=== PATIENT | female | born 1995 | race Caucasian/White ===

== ENCOUNTER 2016-10-22 17:32 | Emergency (ER) | payer BC ==
[2016-10-22 17:52] VITALS: BP 121/74
[2016-10-22] MEDS ORDERED: Tetan/Diph/Pertus SYR(Tdap)* 0.5 ML SYR(BOOSTRIX) use SYR IM ONE (18:42)
--- NOTE | 2016-10-22 19:04 | UC ---
Bite Injury/Animal HPI - HPI Summary HPI Summary: 21 yo female c/o R wrist cat bite occurred approx an hour prior to arrival. Cat his her own cat, she reports that cat's rabies immunization utd. Bite occurred as pt was trying to rescue the domi from being stuck. (She succeeded, but domi was scared and bit her in the process.) Afraid of infection and wants to be checked. - History of Current Complaint Chief Complaint: UCBiteInjury Stated Complaint: CAT BITE Time Seen by Provider: 10/22/16 18:37 Hx Obtained From: Patient Hx Last Menstrual Period: n/a pt has mirena ?: No - Allergies/Home Medications Allergies/Adverse Reactions: Allergies Allergy/AdvReac Type Severity Reaction Status Date / Time Penicillin V Allergy Intermediate Hives Verified 10/22/16 17:52 [From Penicil VK] PMH/Surg Hx/FS Hx/Imm Hx Previously Healthy: Yes Endocrine History Of: Denies: Diabetes, Thyroid Disease, Hyperthyroidism, Hypothyroidism, Dyslipidemia Cardiovascular History Of: Denies: Cardiac Disorders, Hypertension, Pacemaker/ICD, Myocardial Infarction , Congestive Heart Failure, Atrial Fibrillation, Deep Vein Thrombosis, Bleeding Disorders Respiratory History Of: Reports: Asthma Denies: COPD, Bronchitis, Pneumonia, Pulmonary Embolism GI/ History Of: Denies: Gastroesophageal Reflux, Ulcer, Gastrointestinal Bleed, Gall Bladder Disease, Kidney Stones, Diverticulitis, Renal Disease, Urosepsis Neurological History Of: Denies: TIA, CVA, Dementia, Seizures, Migraine Psychological History Of: Reports: Depression - She took medication six years ago. Denies: Anxiety, Bipolar Disorder, Schizophrenia, Post Traumatic Stress Disorder Cancer History Of: Denies: Lung Cancer, Colorectal Cancer, Breast Cancer, Prostate Cancer, Cervical Cancer Other History Of: Negative For: HIV, Hepatitis B, Hepatitis C, Anticoagulant Therapy - Surgical History Surgical History: Yes Surgery Procedure, Year, and Place: TONSILECTOMY AT AGE 9. [place] teeth - Family History Known Family History: Positive: Cardiac Disease, Hypertension - Social History Alcohol Use: None Substance Use Type: None Smoking Status (MU): Never Smoked Tobacco - Immunization History Most Recent Tetanus Shot: 2008 Vaccination Up to Date: Yes Review of Systems Constitutional: Negative Skin: Other - see hpi Eyes: Negative ENT: Negative Respiratory: Negative Cardiovascular: Negative Gastrointestinal: Negative Genitourinary: Negative Motor: Negative Neurovascular: Negative Musculoskeletal: Negative Neurological: Negative Psychological: Negative All Other Systems Reviewed And Are Negative: Yes Physical Exam Triage Information Reviewed: Yes Appearance: Well-Appearing, Well-Nourished Vital Signs: Initial Vital Signs Temp 99.7 F 10/22/16 17:45 Pulse 100 10/22/16 17:45 Resp 17 10/22/16 17:45 BP 121/74 10/22/16 17:45 Pulse Ox 98 10/22/16 17:45 Vital Signs Reviewed: Yes ENT Exam: Normal - grossly normal Neck exam: Normal - grossly normal Respiratory Exam: Normal - no tachypnea / no dypsnea Cardiovascular Exam: Normal Abdominal Exam: Normal - grossly normal. sitting up w/o difficulty. Musculoskeletal Exam: Normal - see skin for details Neurological Exam: Normal Psychological Exam: Normal Skin Exam: Other - normal color. R distal dorsal and volar wrist with several wounds c/w cat bites. No active bleeding. No repair indicated. They appear superficial - ie, not through the dermis, but still enough to result in trauma. Wounds punctate to approx 1cm in length. From R wrist and hand. Good cap refill. NVI distal. Good pulses. Bite Injury Course/Dx - Course Course Of Treatment: Pt confirms that domi's rabies vaccines are up to date. But last tet immun approx 10 yrs ago. As such Boostrix administered today. PCN - allergic. Rx Doxycycline. Rx mupirocin (thin layer). Rx Diflucan as needed vag yeast infection. Questions answered to the best of my ability. - Differential Dx/Diagnosis Provider Diagnoses: Cat bite R wrist Discharge - Discharge Plan Condition: Stable Disposition: HOME Prescriptions: DOXYcycline CAP(*) [DOXYcycline 100MG CAP(*)] 100 mg PO BID #14 cap Mupirocin 2% OINT* [Bactroban 2 % Oint*] 1 applic TOPICAL BID #1 tube Patient Education Materials: Animal Bite (ED), Diphtheria/Acellular Pertussis/ Tetanus Booster Vaccine (By injection) Referrals: Zhang Quijano NP [Primary Care Provider] -
== END 2016-10-22 19:03 | disposition home or self-care (01) ==
LOC: UCCORT 17:32
DX: S61.531A Puncture wound without foreign body of right wrist, initial encounter (principal); W55.01XA Bitten by cat, initial encounter; Y93.89 Activity, other specified; Y92.9 Unspecified place or not applicable; Z23 Encounter for immunization; J45.909 Unspecified asthma, uncomplicated; F32.9 Major depressive disorder, single episode, unspecified; Z88.0 Allergy status to penicillin
CPT/HCPCS: 90471; 90715; 99212; G0463

== ENCOUNTER 2017-01-08 18:58 | Emergency (ER) | payer BC ==
--- NOTE | 2017-01-08 19:22 | UC ---
Abdominal Pain Female HPI - HPI Summary HPI Summary: 21 YEAR OLD PRESENTS WITH COMPLAINS OF HEART PALPATATIONS AND LEFT SIDED CHEST PAIN. SHE WAS RECENTLY ON MIRENA. I WILL SEND HER TO THE ER TO RULE OUT PE. - History of Current Complaint Chief Complaint: UCUpperExtremity Stated Complaint: STOMACH COMPLAINT Time Seen by Provider: 01/08/17 19:18 Hx Last Menstrual Period: END DECEMBER Allergies/Adverse Reactions: Allergies Allergy/AdvReac Type Severity Reaction Status Date / Time Penicillin V Allergy Intermediate Hives Verified 01/08/17 20:53 [From Penicil VK] Home Medications: Home Medications Acetaminophen [Mapap] 500 mg PO PRN 01/08/17 [History] PMH/Surg Hx/FS Hx/Imm Hx Other History Of: Negative For: HIV, Hepatitis B, Hepatitis C, Anticoagulant Therapy - Surgical History Surgical History: Yes Surgery Procedure, Year, and Place: TONSILLECTOMY AT AGE 9. [place] teeth - Family History Known Family History: Positive: Cardiac Disease, Hypertension - Social History Alcohol Use: None Substance Use Type: None Smoking Status (MU): Never Smoked Tobacco - Immunization History Most Recent Tetanus Shot: 2008 Vaccination Up to Date: Yes Review of Systems Constitutional: Negative Skin: Negative Eyes: Negative ENT: Negative Respiratory: Negative Cardiovascular: Palpitations, Chest Pain Gastrointestinal: Negative Genitourinary: Negative Motor: Negative Neurovascular: Negative Musculoskeletal: Negative Neurological: Negative Psychological: Negative All Other Systems Reviewed And Are Negative: Yes Physical Exam Triage Information Reviewed: Yes Vital Signs: Initial Vital Signs Temp 37.1 C 01/08/17 19:05 Pulse 98 01/08/17 19:05 Resp 16 01/08/17 19:05 BP 141/79 01/08/17 19:05 Pulse Ox 100 01/08/17 19:05 Eye Exam: Normal ENT Exam: Normal Dental Exam: Normal Neck exam: Normal Neck: Positive: 1 Respiratory Exam: Normal Cardiovascular Exam: Normal Abdominal Exam: Normal Musculoskeletal Exam: Normal Neurological Exam: Normal Psychological Exam: Normal Skin Exam: Normal Abd Pain Female Course/Dx - Differential Dx/Diagnosis Provider Diagnoses: CHEST PAIN. HEART PALPATATIONS Discharge - Discharge Plan Condition: Guarded Disposition: AGAINST MEDICAL ADVICE Referrals: Zhang Quijano, [facility] [Primary Care Provider] -
[2017-01-08 20:03] VITALS: BP 126/67
== END 2017-01-08 20:03 | disposition left against medical advice (07) ==
LOC: UCEAST 18:58
DX: R07.9 Chest pain, unspecified (principal); R00.2 Palpitations; Z88.0 Allergy status to penicillin
CPT/HCPCS: 99212; G0463

== ENCOUNTER 2017-01-08 20:19 | Emergency (ER) | payer BC ==
[2017-01-08] MEDS ORDERED: NS 0.9% 1000 ML* 1,000 ML IV SCH (22:30)
[2017-01-08 23:08] LABS: Hematocrit 35 % (35-47); Hemoglobin 11.7 g/dl (12.0-16.0); Mean Corpuscular HGB Conc 33 g/dl (31-36); Mean Corpuscular Hemoglobin 30 pg (27-31); Mean Corpuscular Volume 90 fL (80-97); Mean Platelet Volume 8 um3 (7.4-10.4); Red Cell Distribution Width 13 % (10.5-15)
[2017-01-08 23:19] LABS: Add Diff/Slide Review? Slide Review Added; Comments Flag Yes
[2017-01-08 23:26] LABS: ALT 21 U/L (7-52); AST 15 U/L (13-39); Albumin 4.5 g/dL (3.2-5.2); Alkaline Phosphatase 94 U/L (34-104); Anion Gap 6 mmol/L (2-11); BUN/Creatinine Ratio 18.6 (8-20); Blood Urea Nitrogen 13 mg/dL (6-24); C Reactive Protein 11.81 mg/L (< 5.00); CO2 Carbon Dioxide 27 mmol/L (22-32); Calcium 9.6 mg/dL (8.6-10.3); Chloride 103 mmol/L (101-111); Creatine Kinase 81 U/L (10-223); EGFR African American 135.8 (>60); EGFR Non-African American 105.6 (>60); Globulin 3.7 g/dL (2-4); Glucose 102 mg/dL (70-100); Lipase 24 U/L (11.0-82.0); Potassium 3.6 mmol/L (3.5-5.0); Sodium 136 mmol/L (133-145); Total Protein 8.2 g/dL (6.4-8.9)
[2017-01-08 23:30] LABS: Troponin I 0.01 ng/mL (<0.04)
[2017-01-08] MEDS ORDERED: Iohexol 350* (CONTRAST) 500 ML MDV IV ONE (23:32)
[2017-01-08 23:45] LABS: Urine Bilirubin Negative (Negative); Urine Glucose Negative (Negative); Urine Nitrite Negative (Negative)
[2017-01-08 23:45] LABS: TSH (Thyroid Stimulating Horm) 1.11 mcIU/mL (0.34-5.60)
[2017-01-09 02:33] VITALS: BP 111/48
--- NOTE | 2017-01-09 07:38 | RAD ---
HISTORY: Intermittent left arm and leg numbness COMPARISONS: September 04, 2011 TECHNIQUE: Multiple contiguous axial CT scans were obtained of the head without intravenous contrast. FINDINGS: HEMORRHAGE/INFARCT: There is no hemorrhage or acute infarct. MASSES/SHIFT: There is no mass or shift. EXTRA-AXIAL SPACES: There are no extra-axial fluid collections. SULCI AND VENTRICLES: The sulci and ventricles are normal in size and position for the patient's stated age. CEREBRUM: There are no focal parenchymal abnormalities. BRAINSTEM: There are no focal parenchymal abnormalities. CEREBELLUM: There are no focal parenchymal abnormalities. VESSELS: The vessels are grossly normal. PARANASAL SINUSES: The paranasal sinuses are clear. ORBITS: The orbits are unremarkable. BONES AND SOFT TISSUE: No bone or soft tissue abnormalities are noted. OTHER: None IMPRESSION: NO ACUTE INTRACRANIAL PATHOLOGY.
--- NOTE | 2017-01-09 07:40 | RAD ---
HISTORY: Intermittent left arm and leg numbness COMPARISONS: None TECHNIQUE: Multiple contiguous axial CT scans were obtained of the cervical spine without intravenous contrast, with coronal and sagittal multiplanar reformations. FINDINGS: BRAIN: The visualized brain is unremarkable CENTRAL CANAL: Evaluation of the central canal is limited on CT technique; however, there is no obvious canalicular mass or epidural hemorrhage. ALIGNMENT: There is straightening of the cervical lordosis. VERTEBRAL BODIES: The odontoid process is intact. The atlantoaxial intervals are symmetric. The vertebral bodies are normal in attenuation, without fracture. JOINTS: No subluxation or dislocation MUSCULATURE: Normal INTERVERTEBRAL DISCS: The intervertebral discs are relatively preserved in height. AXIAL IMAGES: C2-C3: There is no osseous neural foraminal narrowing or central canal stenosis. C3-C4: There is no osseous neural foraminal narrowing or central canal stenosis. C4-C5: There is no osseous neural foraminal narrowing or central canal stenosis. C5-C6: There is no osseous neural foraminal narrowing or central canal stenosis. C6-C7: There is no osseous neural foraminal narrowing or central canal stenosis. C7-T1: There is no osseous neural foraminal narrowing or central canal stenosis. SOFT TISSUES: The visualized soft tissues of the neck are unremarkable. The prevertebral fat stripe is preserved. OTHER: None. IMPRESSION: STRAIGHTENING OF THE CERVICAL LORDOSIS. NO OSSEOUS NEURAL FORAMINAL NARROWING OR CENTRAL CANAL STENOSIS
--- NOTE | 2017-01-09 07:41 | RAD ---
HISTORY: Left calf tenderness COMPARISONS: None relevant TECHNIQUE: Multiple transverse and longitudinal ultrasound images were obtained of the left lower extremity from the level of the common femoral vein inferiorly through to the infrapopliteal veins using grayscale, color Doppler, and spectral Doppler imaging with and without compression and with augmentation. Comparison images were obtained of the contralateral common femoral vein. FINDINGS: VEINS: The venous system of the left lower extremity is compressible throughout its course, with normal flow on color Doppler imaging and normal response to augmentation on spectral Doppler imaging. SOFT TISSUES: Unremarkable. OTHER FINDINGS: None. IMPRESSION: NO LEFT LOWER EXTREMITY DEEP VEIN THROMBOSIS
--- NOTE | 2017-01-09 07:44 | RAD ---
HISTORY: Left chest pain COMPARISONS: None TECHNIQUE: Multiple contiguous axial CT scans of the chest were obtained after the administration of nonionic intravenous contrast, timed to the pulmonary arterial phase of contrast enhancement.. Coronal and sagittal multiplanar reformations are also submitted for review. FINDINGS: NECK AND THYROID: The lower neck and thyroid are unremarkable. CHEST WALL: There is no lower cervical, axillary, or supraclavicular lymphadenopathy by size criteria. HEART AND PERICARDIUM: The heart is unremarkable. AORTA AND PULMONARY VASCULATURE: There is no pulmonary arterial filling defect to suggest pulmonary embolism. There is no linear filling defect within the aorta to suggest aortic dissection. MEDIASTINUM: There is no mediastinal lymphadenopathy by size criteria. MARYJANE: There is no hilar lymphadenopathy by size criteria. AIRWAY AND ESOPHAGUS: The airway is unremarkable, without endobronchial filling defect. The esophagus is grossly normal. LUNG PARENCHYMA: The lungs are clear. PLEURA: No pleural abnormalities are noted. UPPER ABDOMEN: The upper abdomen is unremarkable. BONES AND SOFT TISSUES: No bone or soft tissue abnormalities are noted. OTHER: None. IMPRESSION: NO PULMONARY ARTERIAL FILLING DEFECT TO SUGGEST PULMONARY EMBOLISM
--- NOTE | 2017-01-09 08:07 | ED ---
Laron Zamora Rebecca, scribed for Saul Dumont MD on 01/08/17 at 2221 . Complex/Multi-Sys Presentation - HPI Summary HPI Summary: Pt is a 21 y/o F referred from [facility] who presents to ED c/o episodes of L- sided numbness, weakness and muscular aching with palpitations. Episodes began around December 19 which the pt reports was also the date of her first NMP after Mirena removal. Sx been intermittent since onset, mostly occurring at night when trying to relax. Aching is predominantly in the L calf, solis and upper portion of the LUE. The last episode occurred tonight at 1930 while the pt was sitting, eating. Tonight, she experiencing LUE and LLE numbness without radiation to the face with palpitations proceeding. Sx began to resolve upon arrival to [facility]. Currently, she reports mild aching. Additionally reports one episode of dysphasia at 0100 this morning that lasted 2 seconds and was described as her trying to speak without word formation. Confirms that all symptoms occur together. Sx alleviated by spontaneous resolution, aggravated by nothing. Denies vision changes and lightheadedness. Pt had the Mirena IUD from 06/18 to 10/18 and in that time, she experienced similar bouts of symptoms diagnosed as panic attacks that had resolved until the most recent onset 3 weeks ago. PMHx headaches. - History Of Current Complaint Chief Complaint: EDGeneral Time Seen by Provider: 01/08/17 22:10 Hx Obtained From: Patient Timing: Intermittent, Lasting: Severity Initially: Mild Location: Pain At: - LUE and LLE muscular aching Character: Dull - Aching Aggravating Factor(s): Nothing Alleviating Factor(s): Spontaneous resolution Associated Signs And Symptoms: Positive: Weakness - LUE and LLE, Palpitations, Other - LUE and LLE numbness; Brief episode of dysphagia this morning; Denies vision changes and lightheadedness - Allergies/Home Medications Allergies/Adverse Reactions: Allergies Allergy/AdvReac Type Severity Reaction Status Date / Time Penicillin V Allergy Intermediate Hives Verified 01/08/17 20:53 [From Penicil VK] PMH/Surg Hx/FS Hx/Imm Hx Endocrine/Hematology History: Denies: Hx Anticoagulant Therapy, Hx Diabetes, Hx Thyroid Disease Cardiovascular History: Denies: Hx Congestive Heart Failure, Hx Deep Vein Thrombosis, Hx Hypertension , Hx Myocardial Infarction, Hx Pacemaker/ICD Respiratory History: Reports: Hx Asthma Denies: Hx Chronic Obstructive Pulmonary Disease (COPD), Hx Lung Cancer, Hx Pneumonia, Hx Pulmonary Embolism GI History: Denies: Hx Gall Bladder Disease, Hx Gastrointestinal Bleed, Hx Ulcer, Hx Urosepsis History: Denies: Hx Kidney Stones, Hx Renal Disease Neurological History: Reports: Hx Headaches Denies: Hx Dementia, Hx Migraine, Hx Seizures, Hx Transient Ischemic Attacks (TIA) Psychiatric History: Reports: Hx Depression - She took medication six years ago. Denies: Hx Anxiety, Hx Schizophrenia, Hx Bipolar Disorder - Surgical History Surgery Procedure, Year, and Place: TONSILLECTOMY AT AGE 9. [place] teeth Infectious Disease History: No Infectious Disease History: Denies: Traveled Outside the [place] in Last 30 Days - Family History Known Family History: Positive: Cardiac Disease, Hypertension - Social History Alcohol Use: None Hx Substance Use: No Substance Use Type: Reports: None Hx Tobacco Use: No Smoking Status (MU): Never Smoked Tobacco Review of Systems Positive: Other - Denies vision changes Positive: Palpitations Positive: Myalgia - LUE and LLE, particularly in the solis, calf and upper portion of the LUE Neurological: Other - Brief episode of dysphagia at 0100; Denies lightheadedness Positive: Weakness - episodes of LUE and LLE, Numbness - episodes of LUE and LLE All Other Systems Reviewed And Are Negative: Yes Physical Exam - Summary Physical Exam Summary: General: well-appearing, no pain distress Skin: warm, color reflects adequate perfusion, dry Head: normal Eyes: EOMI, [place] ENT: normal Neck: supple, nontender Respiratory: CTA, breath sounds present Cardiovascular: RRR Abdomen: soft, nontender Bowel: present Musculoskeletal: strength/ROM intact, LUE and L calf tenderness Neurological: normal, sensory/motor intact, A&O x3 Psychological: affect/mood appropriate Triage Information Reviewed: Yes Vital Signs On Initial Exam: Initial Vitals Temp Pulse Resp BP Pulse Ox 98.1 F 92 16 121/85 99 01/08/17 20:45 01/08/17 20:45 01/08/17 20:45 01/08/17 20:45 01/08/17 20:45 Vital Signs Reviewed: Yes Diagnostics - Vital Signs Vital Signs Temp Pulse Resp BP Pulse Ox 01/08/17 22:06 97.9 F 83 16 121/72 100 01/08/17 20:45 98.1 F 92 16 121/85 99 - Laboratory Lab Results: Lab Results 01/08/17 01/08/17 01/08/17 Range/Units 22:54 22:54 22:54 WBC 18.0 H (3.5-10.8) 10^3/ul RBC 3.90 L (4.0-5.4) 10^6/ul Hgb 11.7 L (12.0-16.0) g/dl Hct 35 (35-47) % MCV 90 (80-97) fL MCH 30 (27-31) pg MCHC 33 (31-36) g/dl RDW 13 (10.5-15) % Plt Count 423 (150-450) 10^3/ul MPV 8 (7.4-10.4) um3 Neut % (Auto) 62.0 (38-83) % Lymph % (Auto) 30.4 (25-47) % Bailey % (Auto) 6.3 (1-9) % Eos % (Auto) 0.5 (0-6) % Baso % (Auto) 0.8 (0-2) % Absolute Neuts (auto) 11.2 H (1.5-7.7) 10^3/ul Absolute Lymphs (auto) 5.5 H (1.0-4.8) 10^3/ul Absolute Monos (auto) 1.1 H (0-0.8) 10^3/ul Absolute Eos (auto) 0.1 (0-0.6) 10^3/ul Absolute Basos (auto) 0.1 (0-0.2) 10^3/ul Absolute Nucleated RBC 0.03 10^3/ul Nucleated RBC % 0.2 Hem Pathologist Commnt Pending INR (Anticoag Therapy) 1.01 (0.89-1.11) APTT 31.7 (26.0-36.3) seconds D-Dimer, Quantitative 236 H (Less Than 230) ng/mL Sodium 136 (133-145) mmol/L Potassium 3.6 (3.5-5.0) mmol/L Chloride 103 (101-111) mmol/L Carbon Dioxide 27 (22-32) mmol/L Anion Gap 6 (2-11) mmol/L BUN 13 (6-24) mg/dL Creatinine 0.70 (0.51-0.95) mg/dL Est GFR ( Amer) 135.8 (>60) Est GFR (Non-Af Amer) 105.6 (>60) BUN/Creatinine Ratio 18.6 (8-20) Glucose 102 H (70-100) mg/dL Lactic Acid (0.5-2.0) mmol/L Calcium 9.6 (8.6-10.3) mg/dL Magnesium 2.0 (1.9-2.7) mg/dL Total Bilirubin 0.40 (0.2-1.0) mg/dL AST 15 (13-39) U/L ALT 21 (7-52) U/L Alkaline Phosphatase 94 (34-104) U/L Total Creatine Kinase 81 (10-223) U/L CK-MB (CK-2) 1.0 (0.6-6.3) ng/mL Troponin I 0.01 (<0.04) ng/mL C-Reactive Protein 11.81 H (< 5.00) mg/L Total Protein 8.2 (6.4-8.9) g/dL Albumin 4.5 (3.2-5.2) g/dL Globulin 3.7 (2-4) g/dL Albumin/Globulin Ratio 1.2 (1-3) Lipase 24 (11.0-82.0) U/L TSH 1.11 (0.34-5.60) mcIU/mL Beta HCG, Quant < 0.60 mIU/mL Urine Color Urine Appearance Urine pH (5-9) Ur Specific [place] (1.010-1.030) Urine Protein (Negative) Urine Ketones (Negative) Urine Blood (Negative) Urine Nitrate (Negative) Urine Bilirubin (Negative) Urine Urobilinogen (Negative) Ur Leukocyte Esterase (Negative) Urine Glucose (Negative) 01/08/17 01/08/17 Range/Units 22:54 23:35 WBC (3.5-10.8) 10^3/ul RBC (4.0-5.4) 10^6/ul Hgb (12.0-16.0) g/dl Hct (35-47) % MCV (80-97) fL MCH (27-31) pg MCHC (31-36) g/dl RDW (10.5-15) % Plt Count (150-450) 10^3/ul MPV (7.4-10.4) um3 Neut % (Auto) (38-83) % Lymph % (Auto) (25-47) % Bailey % (Auto) (1-9) % Eos % (Auto) (0-6) % Baso % (Auto) (0-2) % Absolute Neuts (auto) (1.5-7.7) 10^3/ul Absolute Lymphs (auto) (1.0-4.8) 10^3/ul Absolute Monos (auto) (0-0.8) 10^3/ul Absolute Eos (auto) (0-0.6) 10^3/ul Absolute Basos (auto) (0-0.2) 10^3/ul Absolute Nucleated RBC 10^3/ul Nucleated RBC % Hem Pathologist Commnt INR (Anticoag Therapy) (0.89-1.11) APTT (26.0-36.3) seconds D-Dimer, Quantitative (Less Than 230) ng/mL Sodium (133-145) mmol/L Potassium (3.5-5.0) mmol/L Chloride (101-111) mmol/L Carbon Dioxide (22-32) mmol/L Anion Gap (2-11) mmol/L BUN (6-24) mg/dL Creatinine (0.51-0.95) mg/dL Est GFR ( Amer) (>60) Est GFR (Non-Af Amer) (>60) BUN/Creatinine Ratio (8-20) Glucose (70-100) mg/dL Lactic Acid 1.2 (0.5-2.0) mmol/L Calcium (8.6-10.3) mg/dL Magnesium (1.9-2.7) mg/dL Total Bilirubin (0.2-1.0) mg/dL AST (13-39) U/L ALT (7-52) U/L Alkaline Phosphatase (34-104) U/L Total Creatine Kinase (10-223) U/L CK-MB (CK-2) (0.6-6.3) ng/mL Troponin I (<0.04) ng/mL C-Reactive Protein (< 5.00) mg/L Total Protein (6.4-8.9) g/dL Albumin (3.2-5.2) g/dL Globulin (2-4) g/dL Albumin/Globulin Ratio (1-3) Lipase (11.0-82.0) U/L TSH (0.34-5.60) mcIU/mL Beta HCG, Quant mIU/mL Urine Color Yellow Urine Appearance Clear Urine pH 7.0 (5-9) Ur Specific [place] 1.010 (1.010-1.030) Urine Protein Negative (Negative) Urine Ketones Negative (Negative) Urine Blood Negative (Negative) Urine Nitrate Negative (Negative) Urine Bilirubin Negative (Negative) Urine Urobilinogen Negative (Negative) Ur Leukocyte Esterase Negative (Negative) Urine Glucose Negative (Negative) Result Diagrams: 01/08/17 22:54 01/08/17 22:54 Lab Statement: Any lab studies that have been ordered have been reviewed, and results considered in the medical decision making process. - CT CT C-Spine CT Interpretation: No Acute Changes - Normal exam CT Interpretation Completed By: Radiologist CT Brain CT Interpretation: No Acute Changes - No acute pathology. CT Interpretation Completed By: Radiologist CTA Chest CT Interpretation: No Acute Changes - No evidence of pathology. CT Interpretation Completed By: Radiologist - Ultrasound No standard instances Ultrasound Interpretation: No Acute Changes - Venous Doppler Study: No DVT. Ultrasound Interpretation Completed By: Radiologist - EKG 0039 Cardiac Rate: NL - 71 bpm EKG Rhythm: Sinus Rhythm ST Segment: Normal Ectopy: None Re-Evaluation - Re-Evaluation First Eval Re-Evaluation Time: 01:45 Change: Improved Comment: Pt is doing well. Had an episode of V-tach with P waves while in room. Complex Multi-Symp Course/Dx Assessment/Plan: Pt is a 21 y/o F referred from [facility] who presents to ED c/o episodes of L-sided numbness, weakness and muscular aching with palpitations that mostly occur at night. Episodes began around December 19 which the pt reports was also the date of her first NMP after Mirena removal. Aching is predominantly in the L calf, solis and upper portion of the LUE. The last episode occurred tonight at 1930 while the pt was sitting, eating. Tonight, she experiencing LUE and LLE numbness without radiation to the face with palpitations proceeding. Currently, she reports mild aching. Additionally reports one episode of dysphasia at 0100 this morning that lasted 2 seconds and was described as her trying to speak without word formation. Confirms that all symptoms occur together. Sx alleviated by spontaneous resolution, aggravated by nothing. Denies vision changes and lightheadedness. Pt had the Mirena IUD from 06/18 to 10/18 and in that time, she experienced similar bouts of symptoms diagnosed as panic attacks that had resolved until the most recent onset 3 weeks ago[address] brain, CT C-Spine, CTA Chest, EKG and Venous doppler study all reveal no acute findings. Discussed care of pt with Dr. Pearson who advised she have a brain CT done here then have her follow up with neurology for probable brain MRI. Discussed the case with Dr. Bradly Robb at 0133. Pt will be D/C to home with a follow up with her PCP and Dr. Pearson ( neurology). She understands and agrees. NO CRITICAL CARE TIME. DISCUSSED WITH DR PEARSON. HE RECOMMENDS NEURO F/U AND BRAIN MRI TO LOOK FOR DEMYELIATION. DISCUSSED RESULT WITH PATIENT/ TO INCLUDE ELEVATED WBC. NO OBVIOUS SOURCE OF INFECTION. DISCUSSED ADMISSION WITH PATINET, SHE PREFERS TO GO HOME AND F/U WITH PMD. DISCHARGE HOME STABLE. - Diagnoses Provider Diagnoses: Paresthesia of left upper and lower extremity, Palpitations - Physician Notifications Discussed Care Of Patient With: Jerel Pearson Time Discussed With Above Provider: 22:30 Instructed by Provider To: Other - Have a brain CT done here then have her follow up with neurology for probable brain MRI. Discussed the case with Dr. Bradly Robb at 0133. Discharge - Discharge Plan Condition: Stable Disposition: HOME Patient Education Materials: Palpitations (ED), Paresthesia (ED) Referrals: Jerel Pearson MD [Medical Doctor] - Zhang Quijano NP [Primary Care Provider] - Additional Instructions: FOLLOW UP WITH YOUR DOCTOR, DR QUIJANO AND NEUROLOGY, DR PEARSON. YOUR WHITE BLOOD CELL COUNT WAS ELEVATED. GET THIS RECHECKED WITH DR QUIJANO. RETURN TO THE EMERGENCY DEPARTMENT FOR ANY WORSENING OF YOUR CONDITION; CHEST PAIN, PALPITATIONS, FEVER, YOU FEEL ILL, WEAKNESS, NUMBNESS OR QUESTIONS OR CONCERNS. The documentation as recorded by the scribe, DiFabio,Larisa accurately reflects the service I personally performed and the decisions made by me, Saul Dumont MD.
== END 2017-01-09 02:27 | disposition home or self-care (01) ==
LOC: ED 20:19
DX: R20.9 Unspecified disturbances of skin sensation (principal); R00.2 Palpitations; M79.662 Pain in left lower leg; Z32.02 Encounter for pregnancy test, result negative; J45.909 Unspecified asthma, uncomplicated; Z88.0 Allergy status to penicillin; F32.9 Major depressive disorder, single episode, unspecified
CPT/HCPCS: 36415; 70450; 71275; 72125; 80053; 81003; 82550; 82553; 83605; 83690; 83735; 84443; 84484; 84702; 85025; 85060; 85379; 85610; 85730; 86140; 93005; 96360; 99283; Q9967

== ENCOUNTER 2018-03-27 07:10 | Emergency (ER) | payer BC ==
--- NOTE | 2018-03-27 07:58 | UC ---
Abdominal Pain Female HPI - HPI Summary HPI Summary: This patient is a 23 year old F presenting to [facility] with a chief complaint of upper abdominal pain since her LNMP on 03/14/18-03/16/18. The CC is described as her stomach is off and burning. The patient rates the pain 8/10 in severity. Symptoms aggravated by PO. Symptoms alleviated by nothing. Patient reports nausea, ovarian pain bilaterally (described as shooting pain), lower back pain bilaterally, and diarrhea (a few times a day). Patient denies fever, vomiting, vaginal discharge, dysuria, and hematochezia. Patient is not on BCP. Patient denies PMHx of GERD or heart burn. FHx of ovarian cysts and PCOS in her mother. - History of Current Complaint Chief Complaint: UCAbdominalPain Stated Complaint: ABD PAIN Time Seen by Provider: 03/27/18 07:33 Hx Obtained From: Patient Hx Last Menstrual Period: 03/14/18 Onset/Duration: Sudden Onset, Lasting Weeks - since her LNMP on 03/14/18-03/16/18 , Still Present Severity Initially: Severe Severity Currently: Severe Pain Intensity: 8 Pain Scale Used: 0-10 Numeric Character: Burning Aggravating Factor(s): Food Alleviating Factor(s): Nothing Associated Signs and Symptoms: Positive: Other: - Patient reports nausea, ovarian pain bilaterally (described as shooting pain), lower back pain bilaterally, and diarrhea (a few times a day). Patient denies fever, vomiting, vaginal discharge, dysuria, and hematochezia. Allergies/Adverse Reactions: Allergies Allergy/AdvReac Type Severity Reaction Status Date / Time Penicillins Allergy Intermediate Hives Verified 03/27/18 07:27 PMH/Surg Hx/FS Hx/Imm Hx Endocrine History: Other Other Endocrine History: denies DM Cardiovascular History: Other Other Cardiovascular History: denies HTN Respiratory History: Asthma Other History Of: Negative For: HIV, Hepatitis B, Hepatitis C, Anticoagulant Therapy - Surgical History Surgical History: Yes Surgery Procedure, Year, and Place: TONSILLECTOMY AT AGE 9. [place] teeth - Family History Known Family History: Positive: Cardiac Disease, Hypertension, Other Family History: Ovarian cysts and PCOS - mother - Social History Alcohol Use: None Substance Use Type: Marijuana Smoking Status (MU): Never Smoked Tobacco - Immunization History Most Recent Tetanus Shot: 2008 Vaccination Up to Date: Yes Review of Systems Constitutional: Other - denies fever Gastrointestinal: Abdominal Pain - upper abdominal pain, Diarrhea - a few times a day, Nausea, Other - denies vomiting and hematochezia Genitourinary: Other - ovarian pain bilaterally; denies dysuria and vaginal discharge Musculoskeletal: Other: - lower back pain bilaterally All Other Systems Reviewed And Are Negative: Yes Physical Exam - Summary Physical Exam Summary: General: well-appearing, no pain distress Skin: warm, color reflects adequate perfusion, dry Head: normal Eyes: EOMI, [place] ENT: normal Neck: supple, nontender Respiratory: CTA, breath sounds present Cardiovascular: RRR Abdomen: soft, Tenderness in epigastrium and tenderness in RLQ and LLQ, more tender in LLQ than RLQ. Bowel: positive bowel sounds Musculoskeletal: normal, strength/ROM intact Neurological: sensory/motor intact, A&O x3 Psychological: affect/mood appropriate Triage Information Reviewed: Yes Vital Signs: Initial Vital Signs Temp 99.1 F 03/27/18 07:21 Pulse 70 03/27/18 07:21 Resp 16 03/27/18 07:21 BP 118/86 03/27/18 07:21 Pulse Ox 98 03/27/18 07:21 Vital Signs Reviewed: Yes Diagnostics - Radiology Gallbladder US Radiology Interpretation Completed By: Radiologist - Gallbladder US reveals NEGATIVE EXAM. [facility] physician has reviewed this radiology report. Transvaginal US Radiology Interpretation Completed By: Radiologist - Transvaginal US reveals NEGATIVE EXAM. [facility] physician has reviewed this radiology report. Re-Evaluation - Re-Evaluation First Eval Re-Evaluation Time: 09:57 Comment: Discussed US results with the patient and plan for discharge. Patient understands and is agreeable with this plan. Abd Pain Female Course/Dx - Course Course Of Treatment: Allergies noted. DISCUSSED EVALUATION IN THE EMERGENCY DEPARTMENT FOR EVALUATION OF HER CONDITION. THE PATIENT DECLINED ED EVAL AT THIS TIME, WISHES EVAL HERE IN CLINIC. DISCUSSED RESULTS WITH WITH PATIENT. LAB WORK PENDING. F/U PMD; RECHECK SOONER IF WORSE. - Differential Dx/Diagnosis Provider Diagnoses: EPIGASTRIC PAIN. NAUSEA AND VOMITING. DIARRHEA. BILATERAL PELVIC PAIN Discharge - Sign-Out/Discharge Documenting (check all that apply): Patient Departure - discharge All imaging exams completed and their final reports reviewed: Yes - Discharge Plan Condition: Stable Disposition: HOME Prescriptions: Omeprazole 20 mg PO BID #30 capsule. Ondansetron ODT TAB* [Zofran 4 MG Odt TAB*] 4 mg PO Q6H PRN #10 tab.odt PRN Reason: Nausea Patient Education Materials: Acute Nausea and Vomiting (ED), Acute Diarrhea (ED ), Acute Abdominal Pain (ED), Pelvic Pain in Women (ED), Epigastric Pain (ED) Referrals: Zhang Quijano, ALARM MECHANISM ADJUSTER [Primary Care Provider] - Additional Instructions: FOLLOW UP WITH YOUR DOCTOR. GO TO THE EMERGENCY DEPARTMENT FOR ANY WORSENING OF YOUR CONDITION; PAIN, FEVER , YOU FEEL ILL, BLOOD IN YOUR VOMIT OR STOOL OR QUESTIONS OR CONCERNS. - Billing Disposition and Condition Condition: STABLE Disposition: Home - Attestation Statements Document Initiated by Jessika: Yes Documenting Scribe: Marquise Michelle Provider For Whom Jessika is Documenting (Include Credential): Saul Dumont MD Scribe Attestation: Marquise Zamora, scribed for Saul Dumont MD on 03/27/18 at 1130. Scribe Documentation Reviewed: Yes Provider Attestation: The documentation as recorded by the Marquise hutchins accurately reflects the service I personally performed and the decisions made by me, Saul Dumont MD
--- NOTE | 2018-03-27 09:38 | RAD ---
INDICATION: Upper dominant pain. COMPARISON: There are no relevant prior studies available for comparison. TECHNIQUE: Multiple real-time images of the right upper quadrant were obtained. FINDINGS: The gallbladder is slightly contracted. No gallstones are seen. No gallbladder wall thickening or pericholecystic fluid is seen. No positive sonographic more recent was present. No intra or extrahepatic ductal distention is present. The common bile duct measured 0.3 cm cm in diameter. The liver is normal in size without significant focal abnormality. The pancreas is partially obscured by overlying bowel gas. The right kidney is normal in size measuring 10.4 x 5.0 x 5.2 cm. No hydronephrosis is present. IMPRESSION: NEGATIVE EXAM.
--- NOTE | 2018-03-27 09:41 | RAD ---
INDICATION: Bilateral pelvic pain. COMPARISON: There are no relevant prior studies available for comparison. TECHNIQUE: Multiple real-time transvaginal images of the pelvis were obtained. FINDINGS: The uterus is normal in size, shape and echogenicity. The uterus measured 7.6 x 3.4 x 4.3 cm. The endometrial echo measured 1.1 cm in thickness. The right ovary measured 4.0 x 2.3 x 2.3 cm. The left ovary measured 4.5 x 3.3 x 2.5 cm. There is vascular flow within both ovaries. There are multiple small subcentimeter bilateral follicular cysts present. No free intraperitoneal fluid is seen. IMPRESSION: NEGATIVE EXAM.
[2018-03-27] MEDS ORDERED: Ondansetron ODT TAB* 4 MG PO ONE (10:00)
[2018-03-27 10:06] VITALS: BP 103/69
[2018-03-27 13:20] LABS: ABS Basophils 0.2 10^3/ul (0-0.2); ABS Eosinophils 0.1 10^3/ul (0-0.6); ABS Lymphocytes 4.5 10^3/ul (1.0-4.8); ABS Monocytes 0.8 10^3/ul (0-0.8); ABS Neutrophils 9.3 10^3/ul (1.5-7.7); ABS Nucleated RBC 0 10^3/ul; Eosinophil % 0.8 % (0-6); Hematocrit 37 % (35-47); Hemoglobin 12.5 g/dl (12.0-16.0); Lymphocyte % 30.2 % (25-47); Mean Corpuscular HGB Conc 34 g/dl (31-36); Mean Corpuscular Hemoglobin 29 pg (27-31); Mean Corpuscular Volume 87 fL (80-97); Mean Platelet Volume 8.5 um3 (7.4-10.4); Nucleated Red Blood Cells % 0; Platelet Count 460 10^3/ul (150-450); Red Blood Count 4.29 10^6/ul (4.00-5.40); Red Cell Distribution Width 13 % (10.5-15); White Blood Count 14.9 10^3/ul (3.5-10.8)
== END 2018-03-27 10:07 | disposition home or self-care (01) ==
LOC: UCEAST 07:10
DX: R10.13 Epigastric pain (principal); R10.2 Pelvic and perineal pain; R11.2 Nausea with vomiting, unspecified; R19.7 Diarrhea, unspecified; Z88.0 Allergy status to penicillin
CPT/HCPCS: 36415; 76705; 76830; 80053; 81003; 83690; 84702; 85025; 86140; 99212; A9270-GY; G0463

== ENCOUNTER 2018-04-14 03:22 | Emergency (ER) | payer BC, OTHER ==
[2018-04-14] MEDS ORDERED: Lidocaine 2% PF * 5 ML VIAL ONE (03:33)
--- NOTE | 2018-04-14 03:38 | ED ---
Laceration/Wound HPI - HPI Summary HPI Summary: This patient is a 23 year old F presenting to [facility] with a chief complaint of laceration to her left thumb since 02:00. Pt reports that she cut her thumb on a light switch at work. The patient rates the pain 9/10 in severity. Symptoms aggravated by nothing. Symptoms alleviated by compression. - History of Current Complaint Stated Complaint: LEFT THUMB LAC Time Seen by Provider: 04/14/18 03:28 Hx Obtained From: Patient Hx Last Menstrual Period: 03/14/18 Onset/Duration: Sudden Onset, Lasting Hours, Still Present Aggravating: Nothing Alleviating: Compression Onset Severity: Moderate Current Severity: Moderate Pain Intensity: 9 Pain Scale Used: 0-10 Numeric - Allergy/Home Medications Allergies/Adverse Reactions: Allergies Allergy/AdvReac Type Severity Reaction Status Date / Time Penicillins Allergy Intermediate Hives Verified 03/27/18 07:27 PMH/Surg Hx/FS Hx/Imm Hx Endocrine/Hematology History: Denies: Hx Anticoagulant Therapy, Hx Diabetes, Hx Thyroid Disease Cardiovascular History: Denies: Hx Congestive Heart Failure, Hx Deep Vein Thrombosis, Hx Hypertension , Hx Myocardial Infarction, Hx Pacemaker/ICD Respiratory History: Reports: Hx Asthma Denies: Hx Chronic Obstructive Pulmonary Disease (COPD), Hx Lung Cancer, Hx Pneumonia, Hx Pulmonary Embolism GI History: Denies: Hx Gall Bladder Disease, Hx Gastrointestinal Bleed, Hx Ulcer, Hx Urosepsis History: Denies: Hx Kidney Stones, Hx Renal Disease Neurological History: Reports: Hx Headaches Denies: Hx Dementia, Hx Migraine, Hx Seizures, Hx Transient Ischemic Attacks (TIA) Psychiatric History: Reports: Hx Depression - She took medication six years ago. Denies: Hx Anxiety, Hx Schizophrenia, Hx Bipolar Disorder - Surgical History Surgery Procedure, Year, and Place: TONSILLECTOMY AT AGE 9. [place] teeth Infectious Disease History: No Infectious Disease History: Denies: Hx Hepatitis, Hx Human Immunodeficiency Virus (HIV), Traveled Outside the [place] in Last 30 Days - Family History Known Family History: Positive: Cardiac Disease, Hypertension Family History: Ovarian cysts and PCOS - mother - Social History Alcohol Use: None Hx Substance Use: No Substance Use Type: Reports: Marijuana Hx Tobacco Use: No Smoking Status (MU): Never Smoked Tobacco Review of Systems Negative: Fever Negative: Epistaxis Negative: Cough Negative: Vomiting Skin: Other - 1 inch laceration to left thumb All Other Systems Reviewed And Are Negative: Yes Physical Exam - Summary Physical Exam Summary: VITAL SIGNS: Reviewed. GENERAL: Patient is a well-developed and nourished FEMALE who is lying comfortable in the stretcher. Patient is not in any acute respiratory distress. HEAD AND FACE: No signs of trauma. No ecchymosis, hematomas or skull depressions. No sinus tenderness. EYES: PERRLA, EOMI x 2, No injected conjunctiva, no nystagmus. EARS: Hearing grossly intact. Ear canals and tympanic membranes are within normal limits. MOUTH: Oropharynx within normal limits. NECK: Supple, trachea is midline, no adenopathy, no JVD, no carotid bruit, no c- spine tenderness, neck with full ROM. CHEST: Symmetric, no tenderness at palpation LUNGS: Clear to auscultation bilaterally. No wheezing or crackles. CVS: Regular rate and rhythm, S1 and S2 present, no murmurs or gallops appreciated. ABDOMEN: Soft, non-tender. No signs of distention. No rebound no guarding, and no masses palpated. Bowel sounds are normal. EXTREMITIES: FROM in all major joints, no edema, no cyanosis or clubbing. 1 inch laceration to the palmar surface of left thumb NEURO: Alert and oriented x 3. No acute neurological deficits. Speech is normal and follows commands. SKIN: Dry and warm Triage Information Reviewed: Yes Vital Signs On Initial Exam: Initial Vitals Temp Pulse Resp BP Pulse Ox 98.5 F 87 15 129/85 99 04/14/18 03:23 04/14/18 03:23 04/14/18 03:23 04/14/18 03:23 04/14/18 03:23 Vital Signs Reviewed: Yes Procedures - Laceration/Wound Repair #1 Location: upper extremity - palmar surface of left thumb Description: Linear Anesthesia: Digital - distal block, 2.0%, Lido Length, Depth and Shape: 1 inch long Irrigated w/ Saline (ccs): 50 Laceration/Wound Explored: clean Closure: Single Layer Suture Type: Nylon - 4-0 Number of Sutures: 4 Sterile Dressing Applied?: Yes Diagnostics - Vital Signs Vital Signs Temp Pulse Resp BP Pulse Ox 04/14/18 03:23 98.5 F 87 15 129/85 99 - Laboratory Lab Statement: Any lab studies that have been ordered have been reviewed, and results considered in the medical decision making process. Laceration Repair Course/Dx - Course Course Of Treatment: This patient is a 23 year old F reporting 1 inch laceration to palmar surface of left thumb. Laceration was repaired with 4 single layer Nylon 4-0 sutures and 2% lido. Sterile dressing applied and neurovascular exam intact. Patient will be discharged home and is advised to come back and have the stitches removed in 10 days. The patient is agreeable with this plan. - Clinical Impression Provider Diagnoses: Laceration of left thumb Discharge - Sign-Out/Discharge Documenting (check all that apply): Patient Departure - discharge home - Discharge Plan Condition: Stable Disposition: HOME Patient Education Materials: Care For Your Stitches (ED), Laceration (ED) Forms: *Work Release Referrals: [facility] [Outside] Additional Instructions: Return to [facility] to have your stitches removed in 10 days. Return to the emergency department with any new or worsening symptoms. - Attestation Statements Document Initiated by Scribe: Yes Documenting Scribe: Fariba Hearn Provider For Whom Scribe is Documenting (Include Credential): Neela Matt MD Scribe Attestation: Fariba Zamora, scribed for Neela Matt MD on 04/14/18 at 0358.
[2018-04-14] MEDS ORDERED: Bacitracin OINTMENT* 0.5% 0.5 oz TUBE ONE (03:53)
[2018-04-14 04:06] VITALS: BP 141/99
== END 2018-04-14 04:06 | disposition home or self-care (01) ==
LOC: ED 03:22
DX: S61.012A Laceration without foreign body of left thumb without damage to nail, initial encounter (principal); W26.9XXA Contact with unspecified sharp object(s), initial encounter; Y92.9 Unspecified place or not applicable; Y99.0 Civilian activity done for income or pay; Z88.0 Allergy status to penicillin
CPT/HCPCS: 12001; 99282; A9270-GY

== ENCOUNTER 2018-05-08 15:30 | Emergency (ER) | payer BC ==
[2018-05-08 15:48] VITALS: BP 123/70
--- NOTE | 2018-05-08 15:55 | UC ---
Ear Complaint HPI - HPI Summary HPI Summary: 23 y/o female presents to the urgent care c/o b/l ear pain w/ pressure, and mild dizziness and DENG at times for the past 3 days. Pain is 7/10 specially in the RT ear. Pt states she when to the [place] ER yesterday and was sent home w / a cough medication. Pt states this morning she noticed a rash in the left side of abdomen w/ itchiness and mild pain. Pt also states she had a laceration on her left thumb and was Rx ABX at the ER about 2 weeks ago. She finished ABx about 1 week ago. She also states she has hx of anemia, but has not taken her Iron pills for a long time. She now has her Period which started yesterday. She took Ibuprofen PO 800mg PO to alleviate symptoms. Pt denies fever, tinnitus, URI , chest pain, abdominal pain, N/V/D. - History of Current Complaint Chief Complaint: UCGeneralIllness Stated Complaint: BILATERAL EAR CONCERN, HEADACHE, DIZZY Time Seen by Provider: 05/08/18 15:54 Hx Obtained From: Patient Hx Last Menstrual Period: 05/05/18 ?: No Onset/Duration: Gradual Onset, Lasting Days - 3 days, Still Present Severity Initially: Mild Severity Currently: Mild Pain Intensity: 7 Pain Scale Used: 0-10 Numeric Aggravating Factors: Nothing Alleviating Factors: OTC Meds Related History: Seasonal Allergies - Allergies/Home Medications Allergies/Adverse Reactions: Allergies Allergy/AdvReac Type Severity Reaction Status Date / Time Penicillins Allergy Intermediate Hives Verified 05/08/18 15:43 PMH/Surg Hx/FS Hx/Imm Hx Previously Healthy: Yes - Pt denies PMHX Other History Of: Negative For: HIV, Hepatitis B, Hepatitis C, Anticoagulant Therapy - Surgical History Surgical History: Yes Surgery Procedure, Year, and Place: Tonsils & Adenoids. [place] teeth - Family History Known Family History: Positive: Cardiac Disease, Hypertension Family History: Ovarian cysts and PCOS - mother, hypothyrodism - Social History Occupation: Employed Full-time Lives: With Family Alcohol Use: None Substance Use Type: None Smoking Status (MU): Never Smoked Tobacco - Immunization History Most Recent Tetanus Shot: 2017 Vaccination Up to Date: Yes Review of Systems Constitutional: Negative Skin: Rash - left side of mid abdomen w/ a rash taht itchess and mild pain Eyes: Negative ENT: Ear Ache - B/L ear pain, Other - mild dizziness at times Respiratory: Negative Cardiovascular: Negative Gastrointestinal: Negative Genitourinary: Negative Motor: Negative Neurovascular: Negative Musculoskeletal: Negative Neurological: Headache Psychological: Negative Is Patient Immunocompromised?: No All Other Systems Reviewed And Are Negative: Yes Physical Exam - Summary Physical Exam Summary: Vital signs: reviewed General: well developed, well nourished obese female sitting in the examining table w/o any apparent distress Skin: [employer], warm and dry, Positive mild erythematous maculopapular eruption, some papule with clear vesicles. located in the left side of mid abdomen in a dermatomal distribution mild tenderness to palpation, no swelling observed. HEENT: -Head: atraumatic, non tender; no scalp dermatitis. -Eyes: sclera and conjunctiva clear, PERRLA, EOMI -Ears: no pre- or postauricular lymphadenopathy or erythema; RT external ear canal with erythema and yellowish purulent discharge, no pinna tenderness on palpation, Rt TM WNL, LF external ear canal clear and LF TM WNL. TMs normal w/ out bulging or retraction. Good light reflex. No fluid level, vesicles, or bullae. No perforation. -Nose/Face: erythematous and edematous nasal mucosa with clear rhinorrhea, no frontal or maxillary sinus tender to palpation. -Mouth/Throat: Mucous membrane moist, posterior pharynx clear, no erythema or exudates. Neck: supple, FROM, nontender, no lymphadenopathy, no meningismus. Chest: Clear to auscultation, normal breath sounds Abd: soft, Bowel sounds active, Nontender. Back: no spinal or CVAT Neuro: A&O x4, GCS 15, no focal neuro deficits, normal behavior for age. Triage Information Reviewed: Yes Vital Signs: Initial Vital Signs Temp 98.7 F 05/08/18 15:43 Pulse 76 05/08/18 15:43 Resp 18 05/08/18 15:43 BP 123/70 05/08/18 15:43 Pulse Ox 100 05/08/18 15:43 Ear Complaint Course/Dx - Course Course Of Treatment: 23 y/o female presents to the urgent care c/o b/l ear pain w/ pressure, and mild dizziness and DENG at times for the past 3 days. Pain is 7/ 10 specially in the RT ear. Pt states she when to the [place] ER yesterday and was sent home w/ a cough medication. Pt states this morning she noticed a rash in the left side of abdomen w/ itchiness and mild pain. Pt also states she had a laceration on her left thumb and was Rx ABX at the ER about 2 weeks ago. She finished ABx about 1 week ago. She also states she has hx of anemia, but has not taken her Iron pills for a long time. She now has her Period which started yesterday. She took Ibuprofen PO 800mg PO to alleviate symptoms. Pt denies fever, tinnitus, URI, chest pain, abdominal pain, N/V/D. Hx obtained. Pt w/ Hx of chicken pox 2X as a child. Pt w/ Rt otitis externa and Probably Herpes Zoster rash on the left side of mid abdomen on examination. Pt Rx Cortisporin otic drops and Valtrex PO as directed below. Pt Strongly advised to f/u w/ her PCP in 3 days if not improvment of symptoms and since she has Hx of anemia and has not been taking her Iron for further management. D/C instructions explained. pt understood and agreed w/ plan of care. - Differential Dx/Diagnosis Differential Diagnosis/HQI/PQRI: Cerumen Impaction, Otitis Externa, Otitis Media , Perforated TM, URI, Other - shingles, rash, Provider Diagnoses: 1- Herpes Zoster on LF side of abdomen. 2- RT otitis Externa Discharge - Sign-Out/Discharge Documenting (check all that apply): Patient Departure - D/c home All imaging exams completed and their final reports reviewed: No Studies - Discharge Plan Condition: Stable Disposition: HOME Prescriptions: Calamine/Pramoxine LOTION* [Caladryl LOTION*] 1 applic .SEE ORDER BID #1 btl Neomyc/Polym/HC 1% OTIC SUSP* [Cortisporin Otic Susp 1%*] 4 drop RIGHT EAR TID # 1 btl ValACYclovir (*) [Valtrex 1 GM(*)] 1 gm PO TID #21 tab Patient Education Materials: Shingles (ED), Otitis Externa (ED) Forms: *Work Release Referrals: Zhang Quijano ACTOR UNDERSTUDY [Primary Care Provider] - 3 Days Additional Instructions: 1-Please Take Valtrex PO as directed and apply Caladryl lotion to alleviate rash. 2-Take ibuprofen PO q6-8hrs prn after meals for pain. 3- apply Cotisporin otic drops as directed for your Rt otitis externa. 3- Please f/u with your PCP in 3 days for further evaluation and treatment on your anemia. - Billing Disposition and Condition Condition: STABLE Disposition: Home - Attestation Statements Provider Attestation: Per institutional requirements, I have reviewed the chart, however, I was not consulted specifically or made aware of this patient by the midlevel provider. I did not personally evaluate, interact with , or disposition this patient.
== END 2018-05-08 16:45 | disposition home or self-care (01) ==
LOC: UCCORT 15:30
DX: B02.9 Zoster without complications (principal); H60.91 Unspecified otitis externa, right ear; Z88.0 Allergy status to penicillin
CPT/HCPCS: 99212; G0463

== ENCOUNTER 2019-01-20 07:43 | Emergency (ER) | payer OTHER, BC ==
[2019-01-20 08:06] VITALS: BP 130/67
--- NOTE | 2019-01-20 08:16 | UC ---
Skin Complaint HPI - HPI Summary HPI Summary: Pt presents with c/o gradual onset of worsening tender, lump on right lower buttocks that began two days ago. Pt states that the pain is worsening and that she does have occasional chills. - History of Current Complaint Chief Complaint: UCSkin Time Seen by Provider: 01/20/19 08:07 Stated Complaint: SKIN CONCERN Hx Obtained From: Patient Hx Last Menstrual Period: 01/05/19 ?: No Onset/Duration: Gradual Onset, Lasting Days, Worse Since - onset Skin Exposure Onset/Duration: Days Ago Timing: Constant Onset Severity: Mild Current Severity: Moderate Pain Intensity: 8 Character: Swelling, Pain, Raised, Painful Aggravating Factor(s): Touch Alleviating Factor(s): Nothing Associated Signs & Symptoms: Positive: Tenderness - Allergy/Home Medications Allergies/Adverse Reactions: Allergies Allergy/AdvReac Type Severity Reaction Status Date / Time Penicillins Allergy Intermediate Hives Verified 01/20/19 08:01 cephalexin Allergy Hives Verified 01/20/19 08:01 Home Medications: Home Medications Ibuprofen TAB* [Advil TAB*] 600 mg PO Q6H PRN 01/20/19 [History Confirmed ] PMH/Surg Hx/FS Hx/Imm Hx Previously Healthy: Yes Other History Of: Negative For: HIV, Hepatitis B, Hepatitis C, Anticoagulant Therapy - Surgical History Surgical History: Yes Surgery Procedure, Year, and Place: [place] Teeth, ~2010; T&A, ~2003, [place] - Family History Known Family History: Positive: Cardiac Disease, Hypertension Family History: Ovarian cysts and PCOS - mother, hypothyrodism - Social History Occupation: Employed Full-time Lives: With Family Alcohol Use: None Substance Use Type: None Smoking Status (MU): Never Smoked Tobacco Have You Smoked in the Last Year: No - Immunization History Most Recent Tetanus Shot: 10/22/16 Vaccination Up to Date: Yes Review of Systems All Other Systems Reviewed And Are Negative: Yes Constitutional: Positive: Negative Skin: Positive: Other - tender "lump" right medial lower buttock Eyes: Positive: Negative ENT: Positive: Negative Respiratory: Positive: Negative Cardiovascular: Positive: Negative Gastrointestinal: Positive: Negative Genitourinary: Positive: Negative Motor: Positive: Negative Neurovascular: Positive: Negative Musculoskeletal: Positive: Negative Neurological: Positive: Negative Psychological: Positive: Negative Is Patient Immunocompromised?: No Physical Exam Triage Information Reviewed: Yes Appearance: Well-Appearing Vital Signs: Initial Vital Signs Temp 99 F 01/20/19 07:59 Pulse 86 01/20/19 07:59 Resp 16 01/20/19 07:59 BP 130/67 01/20/19 07:59 Pulse Ox 100 01/20/19 07:59 Vital Signs Reviewed: Yes Eye Exam: Normal ENT Exam: Normal Dental Exam: Normal Neck exam: Normal Respiratory: Positive: No respiratory distress Musculoskeletal Exam: Normal Neurological Exam: Normal Psychological Exam: Normal Skin Exam: Other - ~ 2-3 cm tender non flucuant mass right medial lower buttock. Pt was given instructions to warm pack area, saok in epsom salt soaks and take prescribed antibiotics as directed. She was also instructed to monitor for worsening symptoms and seek care at the closest ER if symptoms worsen. Course/Dx - Differential Diagnoses - Skin Complaint Differential Diagnoses: Abscess, Cellulitis - Diagnoses Provider Diagnosis: Abscess Discharge - Sign-Out/Discharge Documenting (check all that apply): Patient Departure All imaging exams completed and their final reports reviewed: No Studies - Discharge Plan Condition: Stable Disposition: HOME Prescriptions: Sulfamethox/Trimethoprim DS* [Bactrim DS 800/160 TAB*] 1 tab PO Q12H #20 tab Patient Education Materials: Abscess (ED), Warm Compress or Soak (ED) Referrals: Zhang Quijano NP [Primary Care Provider] - If Needed - Billing Disposition and Condition Condition: STABLE Disposition: Home
== END 2019-01-20 08:23 | disposition home or self-care (01) ==
LOC: UCCORT 07:43
DX: L02.31 Cutaneous abscess of buttock (principal); Z88.0 Allergy status to penicillin; Z88.1 Allergy status to other antibiotic agents
CPT/HCPCS: 99212; G0463

== ENCOUNTER 2019-09-13 16:10 | Emergency (ER) | payer BC, OTHER ==
[2019-09-13 16:51] VITALS: BP 118/88
--- NOTE | 2019-09-13 19:19 | UC ---
Throat Pain/Nasal Ortiz HPI - HPI Summary HPI Summary: 24-year-old female 33 weeks presents with 3 day history of nasal congestions, sinus pressure, bilateral ear fullness, mild sore throat, and occasional dry nonproductive cough. No recent travel. Denies fever, chills, chest pain, shortness of breath, abdominal pain, nausea, vomiting, or diarrhea. - History of Current Complaint Chief Complaint: UCRespiratory Stated Complaint: EAR PAIN Time Seen by Provider: 09/13/19 18:55 Hx Obtained From: Patient Hx Last Menstrual Period: 01/05/19 Pain Intensity: 3 - Allergies/Home Medications Allergies/Adverse Reactions: Allergies Allergy/AdvReac Type Severity Reaction Status Date / Time Penicillins Allergy Intermediate Hives Verified 09/13/19 16:46 cephalexin Allergy Hives Verified 09/13/19 16:46 Home Medications: Home Medications Acetaminophen [Acetaminophen Extra Strength] 500 mg PO Q4H PRN 09/13/19 [ History Confirmed 09/13/19] Vitamin TAB* 1 tab PO DAILY 09/13/19 [History Confirmed 09/13/19] PMH/Surg Hx/FS Hx/Imm Hx Previously Healthy: Yes - Denies significant PMH Other History Of: Negative For: HIV, Hepatitis B, Hepatitis C, Anticoagulant Therapy - Surgical History Surgical History: Yes Surgery Procedure, Year, and Place: Colonoscopy/Endoscopy, 2019; [place], ~ 2010; T&A, ~2003, [place] - Family History Known Family History: Positive: Cardiac Disease, Hypertension Family History: Ovarian cysts and PCOS - mother, hypothyrodism - Social History Occupation: Employed Full-time Lives: Alone Alcohol Use: None Substance Use Type: None Smoking Status (MU): Never Smoked Tobacco Have You Smoked in the Last Year: No - Immunization History Most Recent Tetanus Shot: 10/22/16 Vaccination Up to Date: Yes Review of Systems All Other Systems Reviewed And Are Negative: Yes Constitutional: Negative: Fever, Chills Eyes: Negative: Drainage, Eye Redness ENT: Positive: Sore Throat, Ear Ache, Nasal Discharge, Sinus Congestion, Sinus Pain/Tenderness Respiratory: Positive: Cough. Negative: Shortness Of Breath Cardiovascular: Negative: Palpitations, Chest Pain Gastrointestinal: Negative: Abdominal Pain, Vomiting, Diarrhea, Nausea Genitourinary: Positive: Negative Musculoskeletal: Positive: Negative Neurological/Mental Status: Positive: Negative Is Patient Immunocompromised?: No Physical Exam - Summary Physical Exam Summary: GENERAL APPEARANCE: Well developed, well nourished, alert and cooperative, and appears to be in no acute distress. EYES: Conjunctiva clear. No drainage. EARS: External auditory canals and tympanic membranes clear, hearing grossly intact. NOSE: Moderate nasal congestion with clear discharge. THROAT: Mild pharyngeal erythema without tonsilar inflammation, swelling, exudate, or lesions. Uvula midline. NECK: Neck supple, non-tender without lymphadenopathy. CARDIAC: Normal S1 and S2. No S3, S4 or murmurs. Rhythm is regular. There is no peripheral edema, cyanosis or pallor. Extremities are warm and well perfused. Capillary refill is less than 2 seconds. Peripheral pulses intact. LUNGS: Clear to auscultation without rales, rhonchi, wheezing or diminished breath sounds. Dry nonproductive cough. ABDOMEN: Positive bowel sounds. Soft, nondistended, nontender. No guarding or rebound. No masses or hepatosplenomegally. MUSKULOSKELETAL: ROM intact to all extremities. No joint erythema or tenderness. Normal muscular development. Normal gait. SKIN: Skin normal color, texture and turgor with no lesions or eruptions. Triage Information Reviewed: Yes Vital Signs: Initial Vital Signs Temp 98.7 F 09/13/19 16:43 Pulse 98 09/13/19 16:43 Resp 18 09/13/19 16:43 BP 118/88 09/13/19 16:43 Pulse Ox 99 09/13/19 16:43 Vital Signs Reviewed: Yes Throat Pain/Nasal Course/Dx - Course Course Of Treatment: 24-year-old female 33 weeks presents with 3 day history of nasal congestions, sinus pressure, bilateral ear fullness, mild sore throat, and occasional dry nonproductive cough. No recent travel. Denies fever, chills, chest pain, shortness of breath, abdominal pain, nausea, vomiting, or diarrhea. Afebrile. Vital signs stable. Patient had moderate nasal congestion with clear nasal discharge, normal TMs, mild pharyngeal erythema without tonsillar swelling or exudate, no cervical lymphadenopathy, clear bilateral breath sounds , dry nonproductive cough, and otherwise unremarkable exam. Rapid flu test was negative. Recommending symptomatic treatment for a viral upper respiratory infection. She is to follow-up with her primary care provider in 3-5 days if symptoms are not improving. Anticipatory guidance and warning symptoms reviewed with the patient. Verbalizes understanding and agrees with plan of care. - Differential Dx/Diagnosis Differential Diagnosis/HQI/PQRI: Otitis Media, Pharyngitis, Sinusitis, Tonsillitis, URI Provider Diagnosis: Viral URI Discharge ED - Sign-Out/Discharge Documenting (check all that apply): Patient Departure All imaging exams completed and their final reports reviewed: No Studies - Discharge Plan Condition: Stable Disposition: HOME Patient Education Materials: Upper Respiratory Infection (ED) Referrals: Zhang Quijano [employer] [Primary Care Provider] - Additional Instructions: Your history and exam are consistent with a viral upper respiratory infection. Viral infections do not respond to antibiotics and are limited to the treatment of symptoms. Viral infections typically run their course in 7-10 days. Drink plenty of fluids to avoid dehydration especially if you are running any fever. Use a saline rinse kit such as Neti Pot or NeilMed at least twice a day to help thin secretions and promote drainage of the sinuses. Use fluticasone (Flonase) nasal spray 2 sprays each nostril once daily. Take over the counter acetaminophen (Tylenol) according to directions as needed for pain or fever. Use salt water gargles several times a day if you have a sore throat. You may use plain Robitussin according to directions as needed for cough. Follow up with your primary care provider in 3-5 days if symptoms persist. Seek immediate medical attention in the emergency room if you have fever greater than 100.5 F despite taking acetaminophen or ibuprofen, have chest pain , difficulty breathing, are unable to swallow, or have any worsening of symptoms. - Billing Disposition and Condition Condition: STABLE Disposition: Home - Attestation Statements Provider Attestation: This patient was not seen by me. I was available for consult. Chart reviewed. AMIE
== END 2019-09-13 19:38 | disposition home or self-care (01) ==
LOC: UCCORT 16:10
DX: O99.513 Diseases of the respiratory system complicating pregnancy, third trimester (principal); J06.9 Acute upper respiratory infection, unspecified; Z3A.33 33 weeks gestation of pregnancy; Z88.0 Allergy status to penicillin; Z88.1 Allergy status to other antibiotic agents
CPT/HCPCS: 99211; G0463

== ENCOUNTER 2019-09-18 13:28 | Emergency (ER) | payer BC ==
[2019-09-18 13:53] VITALS: BP 128/80
--- NOTE | 2019-09-18 14:29 | UC ---
Respiratory Complaint HPI - HPI Summary HPI Summary: 24 yo female who is 34 weeks presents with intermittent dyspnea x 1 week chest feels tight has had one week of uri symtpoms she has a hx of asthma denies wheezing no travel works at [employer] good activity no f/c - History of Current Complaint Chief Complaint: UCRespiratory Stated Complaint: SHORT OF BREATH Time Seen by Provider: 09/18/19 13:54 Hx Obtained From: Patient Hx Last Menstrual Period: 01/05/19 Onset/Duration: Gradual Onset, Lasting Days Timing: Intermittent Episodes - last ing hours Severity Initially: Mild Severity Currently: Mild Pain Intensity: 3 Pain Scale Used: 0-10 Numeric Character: Cough: Nonproductive - and only with forced expiration Aggravating Factors: Nothing Alleviating Factors: Nothing Associated Signs And Symptoms: Positive: Dyspnea, Nasal Congestion. Negative: Fever, Chills, Pleuritic Chest Pain, Wheezing, Hemoptysis, Dizziness, Calf Pain , Calf Swelling, Edema, URI, Hoarseness, Sinus Discomfort - Allergies/Home Medications Allergies/Adverse Reactions: Allergies Allergy/AdvReac Type Severity Reaction Status Date / Time Penicillins Allergy Intermediate Hives Verified 09/18/19 13:53 cephalexin Allergy Hives Verified 09/18/19 13:53 Home Medications: Home Medications Vitamin TAB* 1 tab PO DAILY 09/13/19 [History Confirmed 09/18/19] PMH/Surg Hx/FS Hx/Imm Hx Previously Healthy: Yes Respiratory History: Asthma Other History Of: Negative For: HIV, Hepatitis B, Hepatitis C, Anticoagulant Therapy - Surgical History Surgical History: Yes Surgery Procedure, Year, and Place: Colonoscopy/Endoscopy, 2019; [place], ~ 2010; T&A, ~2003, [place] - Family History Known Family History: Positive: Cardiac Disease, Hypertension Family History: Ovarian cysts and PCOS - mother, hypothyrodism - Social History Alcohol Use: None Substance Use Type: None Smoking Status (MU): Never Smoked Tobacco Have You Smoked in the Last Year: No - Immunization History Most Recent Tetanus Shot: 10/22/16 Vaccination Up to Date: Yes Review of Systems All Other Systems Reviewed And Are Negative: Yes Constitutional: Positive: Negative Skin: Positive: Negative Eyes: Positive: Negative ENT: Positive: Nasal Discharge Respiratory: Positive: Shortness Of Breath, Cough - with forced expiration Cardiovascular: Positive: Negative Gastrointestinal: Positive: Negative Genitourinary: Positive: Negative Motor: Positive: Negative Neurovascular: Positive: Negative Musculoskeletal: Positive: Negative Neurological/Mental Status: Positive: Negative Psychological: Positive: Negative Physical Exam Triage Information Reviewed: Yes Appearance: Well-Appearing, No Pain Distress, Well-Nourished Vital Signs: Initial Vital Signs Temp 98.3 F 09/18/19 13:50 Pulse 91 09/18/19 13:50 Resp 20 09/18/19 13:50 BP 128/80 09/18/19 13:50 Pulse Ox 97 09/18/19 13:50 Vital Signs Reviewed: Yes Eyes: Positive: Conjunctiva Clear ENT: Positive: Hearing grossly normal, Nasal congestion, Nasal drainage, Uvula midline. Negative: Tonsillar swelling, Tonsillar exudate, Trismus, Muffled voice, Hoarse voice, Sinus tenderness Dental Exam: Normal Neck: Positive: Supple, Nontender, No Lymphadenopathy Respiratory: Positive: Lungs clear, Normal breath sounds, No respiratory distress, No accessory muscle use Cardiovascular: Positive: RRR Abdomen Description: Positive: Other: - gravid uterus Musculoskeletal: Positive: ROM Intact, No Edema Neurological: Positive: Alert Psychological Exam: Normal Skin Exam: Normal Respiratory Course/Dx - Differential Dx/Diagnosis Provider Diagnosis: Viral syndrome Discharge ED - Sign-Out/Discharge Documenting (check all that apply): Patient Departure All imaging exams completed and their final reports reviewed: No Studies - Discharge Plan Condition: Stable Disposition: HOME Patient Education Materials: Viral Syndrome (ED) Referrals: Zhang Quijano NP [Primary Care Provider] - Additional Instructions: I have a low index of suspicion for Covid 19 Test results pending the health department will contact you please get rechecked for worsening symptoms your influenza test was negative please see In-House Isolation sheet - Billing Disposition and Condition Condition: STABLE Disposition: Home
[2019-09-18 15:03] LABS: Influenza A Molecular Negative (Negative); Influenza B Molecular Negative (Negative)
== END 2019-09-18 15:20 | disposition home or self-care (01) ==
LOC: UCEAST 13:28
DX: O98.513 Other viral diseases complicating pregnancy, third trimester (principal); Z3A.34 34 weeks gestation of pregnancy; O99.52 Diseases of the respiratory system complicating childbirth; J45.909 Unspecified asthma, uncomplicated; Z88.0 Allergy status to penicillin; Z88.1 Allergy status to other antibiotic agents
CPT/HCPCS: 99212; G0463; U0002

== ENCOUNTER 2019-11-01 11:52 | Inpatient (IN) | payer BC ==
[2019-11-01] MEDS ORDERED: Lactated Ringers 1000 ml BAG 1,000 ML IV ONE (13:15)
[2019-11-01] MEDS ORDERED: Buffered Lidocaine 1% SYRIN 1 ml INTRADERM ONE (13:15)
[2019-11-01] MEDS ORDERED: Lactated Ringers 1000 ml BAG 1,000 ML IV SCH (14:00)
[2019-11-01 14:12] LABS: Urine Benzodiazepine Screen None Detected (None Detect); Urine Opiates Screen None Detected (None Detect)
[2019-11-01] MEDS ORDERED: Morphine 10 MG/ML VIAL (1 ml) IM PRN (22:06)
[2019-11-02] MEDS ORDERED: Oxytocin 20 UNITS in LR* LOW DOSE 1000 ml IVPB SCH (08:51)
[2019-11-02] MEDS ORDERED: Lactated Ringers 1000 ml BAG 1,000 ML IV SCH ×2 (08:51→22:00)
[2019-11-02] MEDS ORDERED: Oxytocin in LR 20 UNITS/1,000 ML BAG IVPB ONE (09:27)
[2019-11-02 19:02] LABS: Hemoglobin 19.8 g/dL (12.0-16.0); Mean Corpuscular HGB Conc 34 g/dL (31-36); Mean Corpuscular Hemoglobin 30 pg (27-31); Mean Corpuscular Volume 88 fL (80-97); Mean Platelet Volume 8.9 fL (7.4-10.4); Platelet Count 117 10^3/uL (150-450); Red Blood Count 6.66 10^6 /uL (3.70-4.87); Red Cell Distribution Width 15 % (10-15); White Blood Count 4.7 10^3/uL (3.5-10.8)
[2019-11-02 19:59] LABS: Hematocrit 59 % (35-47)
[2019-11-02] MEDS ORDERED: OBEPIDURAL 250 ML EPIDURAL ONE (20:18)
[2019-11-02 20:26] LABS: ABS Basophils 0.1 10^3/ul (0-0.2); ABS Eosinophils 0.1 10^3/ul (0-0.6); Eosinophil % 0.7 %; Hematocrit 33 % (35-47); Hemoglobin 11.2 g/dL (12.0-16.0); Lymphocyte % 20.9 %; Mean Corpuscular HGB Conc 34 g/dL (31-36); Mean Corpuscular Hemoglobin 30 pg (27-31); Mean Corpuscular Volume 87 fL (80-97); Mean Platelet Volume 8.8 fL (7.4-10.4); Platelet Count 321 10^3/uL (150-450); Red Blood Count 3.78 10^6 /uL (3.70-4.87); Red Cell Distribution Width 15 % (10-15); White Blood Count 14.5 10^3/uL (3.5-10.8)
[2019-11-02] MEDS ORDERED: Lidocaine 1.5% EPI 1:200,000 30 ML SDV ONE (20:40)
[2019-11-02] MEDS ORDERED: Lactated Ringers 1000 ml BAG 1,000 ML IV ONE (21:03)
[2019-11-02] MEDS ORDERED: Phenylephrine 40 mcg/mL 10mL (400mcg) SYRINGE IV PUSH PRN ×2 (21:03)
[2019-11-02] MEDS ORDERED: Sodium Citrate/Citric Acid LIQ 15 ML UDC PO PRN (21:03)
[2019-11-02] MEDS ORDERED: OBEPIDURAL 250 ML EPIDURAL SCH (22:00)
[2019-11-03 00:34] LABS: Hematocrit 32 % (35-47); Hemoglobin 11.1 g/dL (12.0-16.0); Mean Corpuscular HGB Conc 34 g/dL (31-36); Mean Corpuscular Hemoglobin 30 pg (27-31); Mean Corpuscular Volume 87 fL (80-97); Mean Platelet Volume 8.8 fL (7.4-10.4); Platelet Count 306 10^3/uL (150-450); Red Blood Count 3.72 10^6 /uL (3.70-4.87); Red Cell Distribution Width 15 % (10-15)
[2019-11-03 00:35] LABS: ABS Eosinophils 0.1 10^3/ul (0-0.6); ABS Lymphocytes 2.5 10^3/ul (1.0-4.8); ABS Monocytes 0.9 10^3/ul (0-0.8); Eosinophil % 0.6 %; Lymphocyte % 16.4 %
[2019-11-03 00:36] LABS: Platelet Count 306 10^3/ul (150-450); Schistocytes ABSENT
[2019-11-03 00:37] LABS: Activated Partial Thrombo Time 25.3 seconds (26.0-38.0); Fibrinogen 486.5 mg/dL (110.8-404.3); Potassium 3.8 mmol/L (3.5-5.0)
[2019-11-03 00:38] LABS: Albumin 3.1 g/dL (3.2-5.2); Albumin/Globulin Ratio 0.9 (1-3); BUN/Creatinine Ratio 14.8 (8-20); EGFR African American 167.8 (>60); EGFR Non-African American 138.7 (>60); Globulin 3.4 g/dL (2-4); Total Bilirubin 0.3 mg/dL (0.2-1.0); Total Protein 6.5 g/dL (6.4-8.9); Uric Acid 4.7 mg/dL (2.3-6.6)
[2019-11-03] MEDS ORDERED: Dibucaine 1% OINT 28.35 GM TUBE PR PRN (08:35)
[2019-11-03] MEDS ORDERED: Glycerin ADULT 2.4 gm SUPP PR PRN (08:35)
[2019-11-03] MEDS ORDERED: Witch Hazel PAD JAR TOPICAL PRN (08:35)
[2019-11-03] MEDS ORDERED: Lactated Ringers 1000 ml BAG 1,000 ML IV SCH (09:00)
[2019-11-04 06:14] LABS: ABS Basophils 0.1 10^3/ul (0-0.2); ABS Eosinophils 0.1 10^3/ul (0-0.6); ABS Monocytes 1.1 10^3/ul (0-0.8); Eosinophil % 0.9 %; Hematocrit 28 % (35-47); Hemoglobin 9.3 g/dL (12.0-16.0); Lymphocyte % 25.2 %; Mean Corpuscular HGB Conc 34 g/dL (31-36); Mean Corpuscular Hemoglobin 30 pg (27-31); Mean Corpuscular Volume 89 fL (80-97); Mean Platelet Volume 8.6 fL (7.4-10.4); Platelet Count 260 10^3/uL (150-450); Red Blood Count 3.11 10^6 /uL (3.70-4.87); Red Cell Distribution Width 15 % (10-15)
[2019-11-04 09:13] VITALS: BP 130/74
== END 2019-11-04 12:13 | disposition home or self-care (01) | DRG 560 ==
LOC: MCHOBOUT 11:52 → MCHOB 13:48
PROVIDERS: ADMIT Advanced Practice Midwife; ATTEND Midwife